=== PATIENT | female | born 1955 | race Caucasian/White ===

== ENCOUNTER 2025-01-02 16:15 | Inpatient (IN) | payer MEDICARE, OTHER ==
[~2025-01-02] VITALS: Ht 154.9 cm; Wt 54.4 kg
[2025-01-02] MEDS ORDERED: VITAMIN D210 MCG PO (16:24)
[2025-01-02] MEDS ORDERED: LISINOPRIL5 MG PO (16:24)
[2025-01-02] MEDS ORDERED: ZOLOFT100 MG PO (16:25)
[2025-01-02] MEDS ORDERED: EXELON1 EACH T (16:26)
[2025-01-02] MEDS ORDERED: REMERON15 M2 PO (16:27)
[2025-01-02] MEDS ORDERED: VISTARIL25 MG PO (16:29)
[2025-01-02] MEDS ORDERED: Ziprasidone Mesylate 20 MG VIAL IM PRN (16:35)
[2025-01-02] MEDS ORDERED: hydrOXYzine hydrochloride 50 MG/ML VIAL IM PRN (16:35)
[2025-01-02] MEDS ORDERED: LORazepam 1 MG TAB PO PRN (16:35)
[2025-01-02] MEDS ORDERED: Water, Sterile 10 ML VIAL IM PRN (16:40)
[2025-01-02] MEDS ORDERED: ACETAMINOPHEN 325 MG TAB PO PRN (16:45)
[2025-01-02] MEDS ORDERED: Magnesium Hydroxide 30 ML UDC PO PRN (16:45)
[2025-01-02] MEDS ORDERED: MG-AL HYDROXIDE/SIMETICONE 30 ML UDC PO PRN (16:45)
[2025-01-02] MEDS ORDERED: Menthol/Zinc Oxide 4 GM THIN T PRN (16:50)
[2025-01-02 18:47] VITALS: BP 113/69
[2025-01-02 20:00] VITALS: BP 168/83
[2025-01-02] MEDS ORDERED: POTASSIUM CHLORIDE 20 MEQ TAB PO ONE (20:20)
[2025-01-02] MEDS ORDERED: Mirtazapine 15 MG TAB PO SCH (21:00)
[2025-01-02] MEDS ORDERED: DIVALPROEX (DR) 250 MG TAB PO SCH (21:00)
[2025-01-02] MEDS ORDERED: Ketorolac Tromethamine 15 MG/ML VIAL IM ONE (22:00)
[2025-01-03] MEDS ORDERED: Ketorolac Tromethamine 15 MG/ML VIAL IV PRN (01:50)
[2025-01-03 07:01] LABS: ALKALINE PHOSPHATASE 130 U/L (46-116); BUN 20 mg/dl (9-23); CHLORIDE 105 mmol/L (98-107); CHOLESTEROL 198 mg/dL (<200); LDL CHOLESTEROL 120 mg/dL (9-159); POTASSIUM 3.7 mmol/L (3.4-5.1); SGPT/ALT 47 U/L (5-49); TOTAL PROTEIN 7.5 gm/dL (6.0-8.0); TRIGLYCERIDES 140 mg/dl (<150)
[2025-01-03 07:36] VITALS: BP 139/79
[2025-01-03 07:40] LABS: VALPROIC ACID (DEPAKENE) 26.2 ug/ml (50-100)
[2025-01-03 08:34] LABS: BASO % 0.3 % (0.0-1.0); EOS % 0.3 % (1.0-4.0); HEMATOCRIT 38.7 % (37.0-47.0); MEAN CELL VOLUME 91.7 fl (81.0-99.0); MEAN CORPUSCULAR HGB 29.9 pg (27.0-31.0); MEAN CORPUSCULAR HGB CONC 32.6 g/dl (33.0-37.0); MEAN PLATELET VOLUME 9.7 fl (9.6-12.3); MONO # 0.7 10*3/uL (0.1-1.0); MONO % 5.9 % (3.0-9.0); NEUT # 9.4 10*3/uL (2.3-7.9); NEUT % 82.1 % (47.0-73.0); PLATELET COUNT AUTOMATED 389 10*3/uL (130-400); RED BLOOD COUNT 4.22 10*6/uL (4.10-5.10); RED CELL DISTRI WIDTH 12.5 % (0-14.5); WHITE BLOOD COUNT 11.5 10*3/uL (4.8-10.8)
[2025-01-03] MEDS ORDERED: Rivastigmine Tartrate 4.6 MG/24 HR PATCH T SCH (09:00)
[2025-01-03] MEDS ORDERED: LISINOPRIL 5 MG TAB PO SCH (10:00)
[2025-01-03] MEDS ORDERED: CEFDINIR 300 MG CAP PO SCH (10:10)
[2025-01-03] MEDS ORDERED: Acetaminophen/Hydrocodone 5 MG/325 MG TABLET PO PRN (11:15)
[2025-01-03 20:00] VITALS: BP 139/73
[2025-01-04 07:05] LABS: ALKALINE PHOSPHATASE 140 U/L (46-116); BUN 16 mg/dl (9-23); CHLORIDE 105 mmol/L (98-107); FREE T4 1.57 ng/dl (0.89-1.76); POTASSIUM 3.6 mmol/L (3.4-5.1); SGPT/ALT 35 U/L (5-49); TOTAL PROTEIN 7.2 gm/dL (6.0-8.0)
[2025-01-04 08:37] VITALS: BP 154/89
[2025-01-04] MEDS ORDERED: Nitrofurantoin Monohydrate/N 100 MG CAP PO SCH (11:35)
[2025-01-04 20:00] VITALS: BP 141/81
[2025-01-04] MEDS ORDERED: DIVALPROEX (DR) 500 MG TAB PO SCH (21:00)
[2025-01-04] MEDS ORDERED: Memantine Hydrochloride 5 MG TAB PO SCH (21:00)
[2025-01-05 07:52] VITALS: BP 120/81
[2025-01-05 20:00] VITALS: BP 160/84
[2025-01-05] MEDS ORDERED: Memantine Hydrochloride 5 MG TAB PO SCH (21:00)
[2025-01-06 06:43] LABS: BASO # 0.1 10*3/uL (0.0-0.1); BASO % 0.6 % (0.0-1.0); EOS # 0.1 10*3/uL (0.0-0.4); EOS % 0.6 % (1.0-4.0); HEMATOCRIT 40.8 % (37.0-47.0); MEAN CELL VOLUME 92.1 fl (81.0-99.0); MEAN CORPUSCULAR HGB 29.6 pg (27.0-31.0); MEAN CORPUSCULAR HGB CONC 32.1 g/dl (33.0-37.0); MEAN PLATELET VOLUME 9.4 fl (9.6-12.3); MONO # 0.6 10*3/uL (0.1-1.0); MONO % 7.4 % (3.0-9.0); NEUT # 6.9 10*3/uL (2.3-7.9); NEUT % 80.3 % (47.0-73.0); PLATELET COUNT AUTOMATED 331 10*3/uL (130-400); RED BLOOD COUNT 4.43 10*6/uL (4.10-5.10); RED CELL DISTRI WIDTH 12.4 % (0-14.5); WHITE BLOOD COUNT 8.6 10*3/uL (4.8-10.8)
[2025-01-06 07:09] LABS: ALKALINE PHOSPHATASE 153 U/L (46-116); BUN 19 mg/dl (9-23); CHLORIDE 103 mmol/L (98-107); POTASSIUM 3.9 mmol/L (3.4-5.1); SGPT/ALT 24 U/L (5-49); TOTAL PROTEIN 7.3 gm/dL (6.0-8.0)
[2025-01-06 08:00] VITALS: BP 117/96
[2025-01-06] MEDS ORDERED: Rivastigmine Tartrate 9.5 MG/24 HR PATCH T SCH (09:00)
[2025-01-06] MEDS ORDERED: hydrOXYzine hydrochloride 50 MG/ML VIAL IM PRN (18:52)
[2025-01-06 20:00] VITALS: BP 105/61
[2025-01-07 07:37] VITALS: BP 141/66
[2025-01-07] MEDS ORDERED: DIVALPROEX SODIUM 125 MG CAP PO SCH (10:43)
[2025-01-07 20:00] VITALS: BP 124/88
[2025-01-07] MEDS ORDERED: Memantine Hydrochloride 10 MG TAB PO SCH (21:00)
[2025-01-08 07:40] VITALS: BP 148/87
[2025-01-08] MEDS ORDERED: RIVASTIGMINE 13.3 MG/24 HR TDM T SCH (09:00)
[2025-01-08 20:00] VITALS: BP 125/85
[2025-01-09 08:00] VITALS: BP 154/98
[2025-01-09 20:00] VITALS: BP 146/90
[2025-01-10 08:00] VITALS: BP 105/58
[2025-01-10 17:04] LABS: BILIRUBIN Negative (Negative); BLOOD Negative (Negative); CLARITY Cloudy (Clear); COLOR Dark Yellow (Yellow); GLUCOSE Negative (Negative); KETONE Trace (Negative); LEUKO ESTERASE Negative (Negative); NITRITE Negative (Negative); SPECIFIC GRAVITY 1.025 (1.001-1.030)
[2025-01-10 17:29] LABS: BACTERIA 2+; MUCOUS 2+
[2025-01-10 20:00] VITALS: BP 133/90
[2025-01-11 06:32] LABS: BASO # 0.1 10*3/uL (0.0-0.1); BASO % 0.9 % (0.0-1.0); EOS % 0.5 % (1.0-4.0); HEMATOCRIT 40.1 % (37.0-47.0); MEAN CELL VOLUME 93.5 fl (81.0-99.0); MEAN CORPUSCULAR HGB 29.8 pg (27.0-31.0); MEAN CORPUSCULAR HGB CONC 31.9 g/dl (33.0-37.0); MONO # 0.7 10*3/uL (0.1-1.0); MONO % 11.8 % (3.0-9.0); NEUT # 4.4 10*3/uL (2.3-7.9); NEUT % 75.6 % (47.0-73.0); PLATELET COUNT AUTOMATED 254 10*3/uL (130-400); RED BLOOD COUNT 4.29 10*6/uL (4.10-5.10); RED CELL DISTRI WIDTH 12.3 % (0-14.5); WHITE BLOOD COUNT 5.8 10*3/uL (4.8-10.8)
[2025-01-11 06:47] LABS: ALKALINE PHOSPHATASE 162 U/L (46-116); BUN 27 mg/dl (9-23); CHLORIDE 101 mmol/L (98-107); POTASSIUM 4.7 mmol/L (3.4-5.1); SGPT/ALT 19 U/L (5-49); TOTAL PROTEIN 6.8 gm/dL (6.0-8.0)
[2025-01-11 07:55] VITALS: BP 104/53
[2025-01-11 20:00] VITALS: BP 120/57
[2025-01-12] MEDS ORDERED: DIVALPROEX SOD125 M1 PO (01:05)
[2025-01-12] MEDS ORDERED: MEMANTINE HCL10 MG PO (01:05)
[2025-01-12] MEDS ORDERED: MIRTAZAPINE15 M2 PO (01:05)
[2025-01-12] MEDS ORDERED: RIVASTIGMINE1 EAC2 T (01:05)
[2025-01-12 08:00] VITALS: BP 114/48
== END 2025-01-12 11:22 | DRG 885 ==
LOC: 3N 16:15
PROVIDERS: Counselor Professional; Internal Medicine; ADMIT Psychiatry & Neurology Psychiatry; ATTEND Psychiatry & Neurology Psychiatry
PROC: 2W39X1Z Immobilization of Left Upper Extremity using Splint (ICD-10-PCS; 2025-01-03)
PROC: GZHZZZZ Group Psychotherapy (ICD-10-PCS; principal; 2025-01-05)
PROC: GZ56ZZZ Individual Psychotherapy, Supportive (ICD-10-PCS; 2025-01-05)
DX: F33.3 Major depressive disorder, recurrent, severe with psychotic symptoms (principal); F03.911 Unspecified dementia, unspecified severity, with agitation; F03.94 Unspecified dementia, unspecified severity, with anxiety; N30.01 Acute cystitis with hematuria; S52.502A Unspecified fracture of the lower end of left radius, initial encounter for closed fracture; I10 Essential (primary) hypertension; E87.6 Hypokalemia; R73.9 Hyperglycemia, unspecified; E67.3 Hypervitaminosis D; F63.81 Intermittent explosive disorder; Z79.899 Other long term (current) drug therapy; Z79.01 Long term (current) use of anticoagulants; Z79.2 Long term (current) use of antibiotics; Z90.710 Acquired absence of both cervix and uterus; Z88.2 Allergy status to sulfonamides; Z88.8 Allergy status to other drugs, medicaments and biological substances; W18.39XA Other fall on same level, initial encounter; Y93.89 Activity, other specified; Y92.89 Other specified places as the place of occurrence of the external cause; Y99.8 Other external cause status

== ENCOUNTER → 2025-01-31 | Outpatient (CLI) | payer MEDICARE, OTHER ==
[~2025-01-31] MED LIST: DIVALPROEX SOD125 M1 PO; EXELON1 EACH T; LISINOPRIL5 MG PO; MEMANTINE HCL10 MG PO; MIRTAZAPINE15 M2 PO; REMERON15 M2 PO; RIVASTIGMINE1 EAC2 T; VISTARIL25 MG PO; VITAMIN D210 MCG PO; ZOLOFT100 MG PO
== END | disposition home or self-care (01) ==
LOC: ORTHO 01:28
PROVIDERS: ATTEND Orthopaedic Surgery
DX: S52.592D Other fractures of lower end of left radius, subsequent encounter for closed fracture with routine healing (principal); M18.12 Unilateral primary osteoarthritis of first carpometacarpal joint, left hand; X58.XXXD Exposure to other specified factors, subsequent encounter